=== PATIENT | female | born 1955 | race Caucasian/White ===

== ENCOUNTER 2016-11-09 14:28 | Inpatient (IN) | payer OTHER, SELFPAY ==
[~2016-11-09] VITALS: Ht 149.9 cm; Wt 80.9 kg
[~2016-11-09 14:28] MED LIST: /ADVA50050 INH; /LORA10TA PO; /WARF25TA PO; ADV100INH INH; ALBU17IN INH; B COCAP5 PO; BREO1INH INH; CALC1TAB30 PO; CALCCHW19 PO; CALCD50TA PO; CALTTAB11 PO; COUM2.5T11 PO; CYMB1CAP5 PO; DULO1CAP PO; DULO30CA PO; DULOXETINE HCL PO; ENAL10TA2 PO; FISH100049 PO; FLON0.054; FLON1SPR; FLUT1SPR2; HYDR12.55 PO; IBUP200C; IBUPROPHEN PO; LABE10TAB PO; LORA10TA2 PO; LORATADINE PO; LOVA1CAP17 PO; MELA10CA PO; MELATONIN PO; MOTR200T44 PO; NORV5TAB PO; OMEP20CA3 PO; TYLE325T5 PO; ULTR50TA PO; VITA100037 PO; VITA100066 PO; VITA50003 PO; VITATAB11 PO; ZETI10TA2 PO; ZETIA PO; fish oil
[2016-11-09] MEDS ORDERED: ONDANSETRON 4 MG TAB (S0181) PO ONE (15:45)
[2016-11-09 16:24] LABS: ANION GAP 7 MEQ/L (8-16); BLOOD UREA NITROGEN 12 MG/DL (7-18); CARBON DIOXIDE LEVEL 28 MEQ/L (21-32); CHLORIDE LEVEL 109 MEQ/L (98-107); CREATININE FOR GFR 0.68 MG/DL (0.55-1.02); GLOMERULAR FILTRATION RATE > 60.0 (>45); GLUCOSE, FASTING 96 MG/DL (80-110); POTASSIUM SERUM 3.8 MEQ/L (3.5-5.1); SODIUM LEVEL 144 MEQ/L (136-145)
[2016-11-09] MEDS ORDERED: ASPIRIN 325 MG TAB PO ONE (16:30)
[2016-11-09] MEDS ORDERED: ASPIRIN 81 MG CHEW TABLET PO ONE (16:45)
[2016-11-09 16:46] LABS: BASO % 0.7 % (0.0-1.0); EOS # 0.1 K/mm3 (0.0-0.50); EOS % 1.9 % (0.0-3.0); LARGE UNSTAINED CELL # 0.2 K/mm3 (0.0-0.4); LARGE UNSTAINED CELL % 2.6 % (0.0-4.0); LYMPH # 1.4 K/mm3 (1.5-4.5); LYMPH % 22.5 % (24.0-44.0); MEAN CORPUSCULAR HEMOGLOBIN 29.9 pg (27.0-33.0); MEAN CORPUSCULAR HGB CONC 32.9 g/dl (32.0-36.5); MEAN CORPUSCULAR VOLUME 90.9 fl (80.0-96.0); MONO # 0.3 K/mm3 (0.0-0.8); MONO % 5.5 % (0.0-5.0); NEUTROPHILS # 3.8 K/mm3 (1.8-7.7); NEUTROPHILS % 66.9 % (36.0-66.0); PLATELET COUNT, AUTOMATED 162 k/mm3 (150-450); RED CELL DISTRIBUTION WIDTH 13.9 % (11.5-14.5); WHITE BLOOD COUNT 5.6 K/mm3 (4.0-10.0)
--- NOTE | 2016-11-09 16:50 | REP ---
Clinical: Chest pain and nausea . Comparison: 12/24/2015 . Findings: The mediastinum and cardiac silhouette are stable and within normal limits for portable technique. The lung you are clear without acute consolidation, effusion, or pneumothorax. Skeletal structures are intact. Impression: Normal portable chest x-ray Signed by Ranulfo Tsang MD 11/09/2016 04:41 P
[2016-11-09 17:10] LABS: ALBUMIN 3.3 GM/DL (3.2-5.2); ALBUMIN/GLOBULIN RATIO 0.89 (1.00-1.93); ALKALINE PHOSPHATASE 58 U/L (45-117); ALT/SGPT 31 U/L (12-78); AST/SGOT 21 U/L (15-37); BILIRUBIN,DIRECT 0.2 MG/DL (0.0-0.2); BILIRUBIN,TOTAL 0.8 MG/DL (0.2-1.0)
[2016-11-09] MEDS ORDERED: ACETAMINOPHEN TAB 650MG DOSE (2X325MG) PO PRN (22:45)
[2016-11-10] VITALS (7 sets, daily range): BP systolic 104–133; BP diastolic 58–69
--- NOTE | 2016-11-10 01:10 | REP ---
Clinical: Abdominal pain and distension. Technique: Single supine view of the abdomen and pelvis. Comparison: 11/16/2014. Findings: Bowel gas pattern is nonspecific. No evidence for bowel obstruction or obvious perforation. Mild fecal stasis cannot be excluded along with associated constipation. No organomegaly. Skeletal structures demonstrate age-related degenerative changes. No abnormal calcifications. Impression: Nonspecific bowel gas pattern. Cannot exclude mild fecal stasis and constipation. Signed by Ranulfo Tsang MD 11/10/2016 01:02 A
[2016-11-10] MEDS ORDERED: BISACODYL 5 MG TAB PO PRN (02:45)
[2016-11-10 05:23] LABS: MEAN CORPUSCULAR HEMOGLOBIN 30.2 pg (27.0-33.0); MEAN CORPUSCULAR HGB CONC 31.2 g/dl (32.0-36.5); RED CELL DISTRIBUTION WIDTH 13.7 % (11.5-14.5); WHITE BLOOD COUNT 4.6 K/mm3 (4.0-10.0)
--- NOTE | 2016-11-10 05:31 | HPE ---
DATE OF ADMISSION: 11/09/2016 REASON FOR ADMISSION: Abdominal pain. PRIMARY CARE PROVIDER: None. HISTORY OF PRESENT ILLNESS The patient is a 61-year-old female with past medical history significant for depression, hyperlipidemia, gastroesophageal reflux disease (GERD), hiatal hernia, history of asthma, who presented to the emergency room stating that she has been feeling nauseated and not feeling well for the last couple of days. She has reported subjective fevers outpatient. The patient stated that she has had a rough couple of days where she had recently become homeless. She had from her and has been living with her brother since the beginning of September. Over the weekend her brother kicked her out and she has been sleeping in her car for the last two days. She stated she started having abdominal pain generalized in nature associated with nausea, no vomiting or diarrhea. The patient stated that she had no other complaints other than subjective fevers. No chest pain or shortness of breath. No cough. No diarrhea. No constipation. No other focal deficits or complaints. In the emergency room, the patient underwent chest x-ray, electrocardiogram (EKG) and lab work. Lab work was within normal limits, negative troponins. EKG had some ST elevation in V1 and V2. Dr. Patricia Mccurdy contacted icu nurse in [place], Dr. German, and she sent him pictures of the EKG as well. He felt that the findings are likely reflective of an old event and not acute event, since the patient is currently asymptomatic with negative troponins. She then spoke with Dr. Li from cardiology who agreed with this assessment. They recommended the patient be admitted and monitored overnight on telemetry. Upon my exam the patient denied any chest pain. Denied any arm pain or neck pain. No back pain. No shortness of breath. No diaphoresis or dizziness. REVIEW OF SYSTEMS: 12-point review of systems was obtained all which is negative except for those mentioned above. PAST MEDICAL HISTORY: Significant for GERD, hiatal hernia, hypertension, asthma, depression. PAST SURGICAL HISTORY: Significant for cholecystectomy, section, bilateral knee, and dilation and curettage(D and C). ALLERGIES: OPIATES, PREDNISONE and NAPROXEN. MEDICATIONS: None. SOCIAL HISTORY: The patient at use to smoke, quite 20 years ago. She admits to binge drinking, but states she has not had any alcohol in months. She currently lives in her car. FAMILY HISTORY: Noncontributory. PHYSICAL FINDINGS: VITALS: On admission, temperature 98.4 pulse 88, respiratory rate 14, blood pressure 130s over 74, pulse oximetry 94% on room air. HEENT: Pupils equal, round, reactive to light and accommodation. NECK: Supple. No jugular venous distention (JVD). LUNGS: Clear to auscultation (CTA) bilaterally. ABDOMEN: Soft, tender to palpation, generalized tenderness. Positive bowel sounds, nondistended. CARDIAC: Regular rate and rhythm. Patient has a +3 over 6 systolic murmur. EXTREMITIES: No clubbing, cyanosis or edema. NEUROLOGIC: Cranial nerves II-XII grossly intact. No obvious focal deficits. LABORATORY FINDINGS: Sodium 144, potassium 3.8, chloride 109, BUN 12, creatinine 0.68, fasting glucose 96, alk phos 58, AST 21, ALT 31, troponin negative times two sets. CK relative index 2.11 and 2.34, lipase 73. Total creatine kinase was 0.3, repeat was negative IMAGING STUDIES: Chest x-ray was normal. KUB showed nonspecific gas pattern; cannot exclude fecal stasis and constipation. ASSESSMENT AND PLAN: 1. Abdominal pain, nausea, likely secondary to constipation. The patient stated she has not had a bowel movement today; she did yesterday. We will start the patient on bowel regimen. We will continue to monitor. We will start the patient on a diet. 2. Electrocardiogram (EKG) abnormality. We will continue to trend troponins. The patient denies any cardiac symptoms at this time. States she used to see Dr. Ivan in the past but has not been following up with any providers. She states that she did have a stress test about two years ago but no further workup was done. The patient has a 3/6 systolic murmur. We will obtain an echocardiogram. 3. History of depression. 4. History of gastroesophageal reflux disease. We will start the patient on Protonix orally. 5. History of hypertension. However, the patient's blood pressure appears to be stable at this time. We will continue to monitor and had medications if needed. 6. Deep venous thrombosis (DVT) prophylaxis. Lovenox subcutaneously daily. The patient will be seen by Dr. Alcantara in the morning. [facility]
[2016-11-10 05:32] LABS: ALBUMIN 2.9 GM/DL (3.2-5.2); ALBUMIN/GLOBULIN RATIO 0.94 (1.00-1.93); ALKALINE PHOSPHATASE 51 U/L (45-117); ALT/SGPT 25 U/L (12-78); ANION GAP 5 MEQ/L (8-16); AST/SGOT 17 U/L (15-37); BILIRUBIN,TOTAL 0.8 MG/DL (0.2-1.0); BLOOD UREA NITROGEN 10 MG/DL (7-18); CALCIUM LEVEL 7.9 MG/DL (8.8-10.2); CARBON DIOXIDE LEVEL 29 MEQ/L (21-32); CHLORIDE LEVEL 109 MEQ/L (98-107); CREATININE FOR GFR 0.71 MG/DL (0.55-1.02); GLOMERULAR FILTRATION RATE > 60.0 (>45); GLUCOSE, FASTING 93 MG/DL (80-110); MAGNESIUM LEVEL 1.9 MG/DL (1.8-2.4); POTASSIUM SERUM 3.7 MEQ/L (3.5-5.1); SODIUM LEVEL 143 MEQ/L (136-145)
--- NOTE | 2016-11-10 07:27 | ECGEPIP ---
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
--- NOTE | 2016-11-10 07:33 | ECGEPIP ---
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
[2016-11-10] MEDS ORDERED: MOM 30ML SUSPENSION UDC PO SCH ×2 (09:00→12:00)
[2016-11-10] MEDS: ENOXAPARIN 40 MG/0.4 ML SYRINGE (J1650) SC SCH (09:31)
[2016-11-10] MEDS: ATORVASTATIN 20 MG TAB PO SCH (09:31)
[2016-11-10] MEDS: ASPIRIN 325 MG TAB PO SCH (09:31)
[2016-11-10] MEDS: PANTOPRAZOLE 40MG TAB (PROTONIX) PO SCH (09:32)
[2016-11-10] MEDS: DOCUSATE SODIUM 100 MG CAP PO SCH ×2 (09:32→20:26)
[2016-11-10] MEDS ORDERED: SLF 3 ML SYR IV PRN (10:45)
--- NOTE | 2016-11-10 12:17 | IPNPDOC ---
Text Note Date of Service The patient was seen on 11/10/16. NOTE Subjective: Pt feels well. Abd pain has resolved. States she is constipated. Tolerated her breakfast without N/V. No CP/palpitations. Objective: Vitals: (see below) General: No acute distress, laying comfortably in bed. HEENT: Moist mucous membranes. Neck: No JVD or lymphadenopathy Cardiac: 3/6 systolic murmur 2nd RICS, RRR Pulm: Diminished breath sounds at the bases b/l. No wheezing, rhonchi Abd: NT/ND + BS Ext: No edema or cyanosis Labs (see below) Images: Abd x ray 11/09/16 Nonspecific bowel gas pattern. Cannot exclude mild fecal stasis and constipation. CXR 11/09/16 Impression: Normal portable chest x-ray Assessment/Plan 1. ST changes with murmur - Echocardiogram pending. CE negative. No CP/ palpitations. Dr. Vidal had spoken to ED physician, noted the spring former [facility] as well as Dr. Li believed that these ST changes are chronic, and do not reflect true [place]. Continue to monitor in telemetry. On aspirin and statin until echocardiogram comes back. 2. Constipation- likely the cause of patient's abdominal discomfort. We will optimize her bowel regimen. 3. History of Depression 4. History of hypertension- blood pressure stable off the meds. 5. GERD- on PPI DVT prophy: Lovenox SQ VS,Fishbone, I+O VS, Fishbone, I+O Laboratory Tests 11/09/16 15:43 Red Blood Count 4.35, Mean Corpuscular Volume 90.9, Mean Corpuscular Hemoglobin 29.9, Mean Corpuscular Hemoglobin Concent 32.9, Red Cell Distribution Width 13.9 , Neutrophils (%) (Auto) 66.9 H, Lymphocytes (%) (Auto) 22.5 L, Monocytes (%) ( Auto) 5.5 H, Eosinophils (%) (Auto) 1.9, Basophils (%) (Auto) 0.7, Neutrophils # (Auto) 3.8, Lymphocytes # (Auto) 1.4 L, Monocytes # (Auto) 0.3, Eosinophils # (Auto) 0.1, Basophils # (Auto) 0.0, Calcium Level 9.0 11/10/16 04:54 Red Blood Count 4.00, Mean Corpuscular Volume 97.0 #H, Mean Corpuscular Hemoglobin 30.2, Mean Corpuscular Hemoglobin Concent 31.2 L, Red Cell Distribution Width 13.7, Calcium Level 7.9 L, Aspartate Amino Transf (AST/SGOT) 17, Alanine Aminotransferase (ALT/SGPT) 25, Total Creatine Kinase 156, Alkaline Phosphatase 51, Total Bilirubin 0.8, Total Protein 6.0 L, Albumin 2.9 L Vital Signs Date Time Temp Pulse Resp B/P (MAP) Pulse Ox O2 Delivery O2 Flow Rate FiO2 11/10/16 07:30 98.3 73 16 107/65 (79) 94 Room Air I&O- Last 24 Hours up to 6 AM 11/10/16 06:00 Intake Total 920 ml Balance 920 ml SHOBHA PHILLIPS MD November 10, 2016 12:17
--- NOTE | 2016-11-10 13:40 | ECHO ---
DATE OF STUDY: 11/10/2016 REFERRING PHYSICIAN: Dr. Quirino Alcantara INDICATION: Heart murmur, abnormal electrocardiogram (ECG) (ST elevation). HEIGHT: 150 cm WEIGHT: 77.7 kg 2D MEASUREMENTS: Aortic root: 2.6 cm LVOT: 2.0 cm Ventricular septum: 1.14 cm Posterior wall: 1.12 cm Left ventricle diastole: 3.9 cm Left atrium: 3.5 cm DOPPLER MEASUREMENTS: Mild aortic regurgitation. Severe aortic stenosis. Peak aortic valve velocity: 486 cm/s Aortic valve VTI: 113 cm Peak aortic valve gradient: 94 mmHg Mean aortic valve gradient: 60 mmHg Aortic valve area (continuity equation VTI): 0.47 cm squared LVOT velocity: 80.0 cm/s LVOT VTI: 16.9 cm Mild mitral regurgitation. Mitral E velocity: 70.1 cm/s Mitral A velocity: 97.2 cm/s Mitral deceleration time: 211 ms Mild tricuspid regurgitation. Estimated right ventricle systolic pressure: 29 mmHg Pulmonary artery systolic pressure: 14 mmHg (by pulmonary acceleration time method) MITRAL ANNULAR TISSUE DOPPLER: E prime septal: 4.1 cm/s E prime lateral: 5.9 cm/s DESCRIPTION: Rhythm was sinus. Image quality was good. No pericardial effusion. This is a 2D, M-mode, color flow Doppler, and pulse wave Doppler examination and included mitral annular tissue Doppler. No pericardial effusion. CONCLUSIONS: 1. Degenerative, calcific aortic valve disease with severe focal thickening and focal calcific deposits of a three-cuspid aortic valve. Moderate reduction in aortic cusp mobility. Presence of severe/critical aortic valve stenosis with peak aortic velocity of 486 cm/s, aortic valve area 0.47 cm squared, peak gradient of 94 mmHg and mean aortic valve gradient of 60 mmHg. Mild aortic regurgitation. 2. Normal left ventricle internal dimensions and wall thickness. Normal left ventricle (LV) wall motion and wall thickening. Normal LV systolic function. Left ventricular ejection fraction (LVEF) 65% by visual estimate. Grade 1 LV diastolic dysfunction (impaired relaxation filling pattern). 3. Mild mitral annular calcification. Mild mitral regurgitation. Suggest aortic valve replacement if the patient has symptoms attributable to severe aortic valve stenosis, such as presyncope or syncope, exertional dyspnea, or anginal symptoms. If the patient is not symptomatic with critical aortic valve stenosis, then suggest close clinical followup and an echocardiogram Doppler in 1 year.
[2016-11-10] MEDS: MOM 30ML SUSPENSION UDC PO SCH ×3 (14:19→20:26)
[2016-11-10] MEDS: SLF 3 ML SYR IV SCH ×2 (14:20→22:00)
[2016-11-10] MEDS: MIRALAX *UNIT DOSE* 17GM PACKET PO SCH (20:26)
[2016-11-11] MEDS: MOM 30ML SUSPENSION UDC PO SCH ×4 (00:27→13:00)
[2016-11-11 04:30] VITALS: BP 150/80
[2016-11-11 05:41] LABS: MEAN CORPUSCULAR HEMOGLOBIN 30.2 pg (27.0-33.0); MEAN CORPUSCULAR HGB CONC 32.8 g/dl (32.0-36.5); RED CELL DISTRIBUTION WIDTH 13.8 % (11.5-14.5); WHITE BLOOD COUNT 4.7 K/mm3 (4.0-10.0)
[2016-11-11 05:45] LABS: MEAN CORPUSCULAR VOLUME 91.9 fl (80.0-96.0)
[2016-11-11 05:57] LABS: ALBUMIN 3.6 GM/DL (3.2-5.2); ALBUMIN/GLOBULIN RATIO 0.88 (1.00-1.93); ALKALINE PHOSPHATASE 63 U/L (45-117); ALT/SGPT 32 U/L (12-78); ANION GAP 6 MEQ/L (8-16); AST/SGOT 19 U/L (15-37); BILIRUBIN,TOTAL 0.9 MG/DL (0.2-1.0); BLOOD UREA NITROGEN 9 MG/DL (7-18); CALCIUM LEVEL 8.8 MG/DL (8.8-10.2); CARBON DIOXIDE LEVEL 29 MEQ/L (21-32); CHLORIDE LEVEL 106 MEQ/L (98-107); CREATININE FOR GFR 0.75 MG/DL (0.55-1.02); GLOMERULAR FILTRATION RATE > 60.0 (>45); GLUCOSE, FASTING 113 MG/DL (80-110); MAGNESIUM LEVEL 2.4 MG/DL (1.8-2.4); SODIUM LEVEL 141 MEQ/L (136-145); TOTAL PROTEIN 7.7 GM/DL (6.4-8.2)
[2016-11-11] MEDS: SLF 3 ML SYR IV SCH (05:59)
[2016-11-11 08:00] VITALS: BP 132/73
[2016-11-11] MEDS: DOCUSATE SODIUM 100 MG CAP PO SCH (09:00)
[2016-11-11] MEDS: MIRALAX *UNIT DOSE* 17GM PACKET PO SCH (09:00)
[2016-11-11] MEDS: ATORVASTATIN 20 MG TAB PO SCH (09:04)
[2016-11-11] MEDS: ASPIRIN 325 MG TAB PO SCH (09:04)
[2016-11-11] MEDS: ENOXAPARIN 40 MG/0.4 ML SYRINGE (J1650) SC SCH (09:04)
[2016-11-11] MEDS: PANTOPRAZOLE 40MG TAB (PROTONIX) PO SCH (09:04)
[2016-11-11] MEDS ORDERED: ATOR1TAB21 PO (11:37)
[2016-11-11] MEDS ORDERED: ECOT81TA5 PO (11:37)
[2016-11-11 11:47] VITALS: BP 101/56
[2016-11-11 11:59] VITALS: BP 129/71
--- NOTE | 2016-11-11 16:16 | DS.PDOC ---
Discharge Summary General Date of Admission November 09, 2016 at 22:41 Date of Discharge 11/11/16 Attending Physician: SHOBHA PHILLIPS MD Discharge Summary PROCEDURES PERFORMED DURING STAY: None. ADMITTING/DISCHARGE DIAGNOSES: 1. Abdominal discomfort secondary to constipation 2. Chronic ST changes 3. LVH 4. Left bundle-branch block 5. Severe/critical aortic stenosis 6. Hypertension, diet controlled 7. GERD 8. History of depression COMPLICATIONS/CHIEF COMPLAINT: Abdominal Pain. HISTORY OF PRESENT ILLNESS/HOSPITAL COURSE: . This is a 61-year-old female with a past history of hypertension, GERD who presents complaining of abdominal discomfort. Patient had been having abdominal bloating, discomfort, with x-ray notable for abnormal gas pattern suspicious for constipation. Patient states that she has been cost. Over the past few days. Of note the patient did have an EKG with ST elevations and the septal as well as inferior leads. Per medical records and Dr. Vidal, these EKGs were reviewed by the color maker in [place] as well as Dr. Li, with consensus that these represent chronic changes, in no acute ischemia, and therefore no need to be transferred to [place]. The patient states she exercises on a treadmill for 2-3 miles at a time. Denies any chest pain/restless/palpitations. No syncopal or presyncopal episodes. Patient was treated for constipation and her abdominal discomfort has completely resolved. I have discussed the results of the patient's severe/critical with the patient, and she states that she would like to have follow-up with Dr. Ivan and would not like any interventions for it at this time as she is asymptomatic. I've called Dr. Ivan and updated him on the patient's echocardiogram results, and he will be seeing the patient's next Wednesday11/16/16 at 2 PM. Patient is now hemodynamically stable and ready to be discharged home. DISCHARGE MEDICATIONS: Please see below. ALLERGIES: Please see below. PHYSICAL EXAMINATION ON DISCHARGE: Vitals: (see below) General: No acute distress, laying comfortably in bed. HEENT: Moist mucous membranes. Neck: No JVD or lymphadenopathy Cardiac: 3/6 systolic murmur 2nd RICS, RRR Pulm: Diminished breath sounds at the bases b/l. No wheezing, rhonchi Abd: NT/ND + BS Ext: No edema or cyanosis LABORATORY DATA: Please see below. IMAGING: Abd x ray 11/09/16 Nonspecific bowel gas pattern. Cannot exclude mild fecal stasis and constipation. CXR 11/09/16 Impression: Normal portable chest x-ray Echocardiogram 11/10/16 CONCLUSIONS: 1. Degenerative, calcific aortic valve disease with severe focal thickening and focal calcific deposits of a three-cuspid aortic valve. Moderate reduction in aortic cusp mobility. Presence of severe/critical aortic valve stenosis with peak aortic velocity of 486 cm/s, aortic valve area 0.47 cm squared, peak gradient of 94 mmHg and mean aortic valve gradient of 60 mmHg. Mild aortic regurgitation. 2. Normal left ventricle internal dimensions and wall thickness. Normal left ventricle (LV) wall motion and wall thickening. Normal LV systolic function. Left ventricular ejection fraction (LVEF) 65% by visual estimate. Grade 1 LV diastolic dysfunction (impaired relaxation filling pattern). 3. Mild mitral annular calcification. Mild mitral regurgitation. Suggest aortic valve replacement if the patient has symptoms attributable to severe aortic valve stenosis, such as presyncope or syncope, exertional dyspnea, or anginal symptoms. If the patient is not symptomatic with critical aortic valve stenosis, then suggest close clinical followup and an echocardiogram Doppler in 1 year. PROGNOSIS: Fair ACTIVITY: As tolerated. DIET: Low-sodium DISCHARGE PLAN/DISPOSITION: 01 Home, Self-Care. DISCHARGE INSTRUCTIONS: 1. Follow-up with PCP in 1-2 weeks. Follow up with Dr. Ivan on Wednesday11/16/16 at 2 PM. DISCHARGE CONDITION: Stable. TIME SPENT ON DISCHARGE: Greater than 30 minutes. Vital Signs/I&Os Vital Signs Date Time Temp Pulse Resp B/P (MAP) Pulse Ox O2 Delivery O2 Flow Rate FiO2 11/11/16 11:59 129/71 (90) 11/11/16 11:47 98.0 68 18 95 Room Air I&O- Last 24 Hours up to 6 AM 11/11/16 06:00 Intake Total 360 ml Balance 360 ml Laboratory Data Labs 24H Laboratory Tests 2 11/11/16 04:55: Anion Gap 6L, Glomerular Filtration Rate > 60.0, Blood Urea Nitrogen 9, Creatinine 0.75, Sodium Level 141, Potassium Level 4.0, Chloride Level 106, Carbon Dioxide Level 29, Calcium Level 8.8, Aspartate Amino Transf (AST/SGOT) 19 , Alanine Aminotransferase (ALT/SGPT) 32, Alkaline Phosphatase 63, Total Bilirubin 0.9, Total Protein 7.7#, Albumin 3.6#, Magnesium Level 2.4, Albumin/ Globulin Ratio 0.88L CBC/BMP Laboratory Tests 11/11/16 04:55 Red Blood Count 4.52, Mean Corpuscular Volume 91.9 #, Mean Corpuscular Hemoglobin 30.2, Mean Corpuscular Hemoglobin Concent 32.8, Red Cell Distribution Width 13.8, Calcium Level 8.8, Aspartate Amino Transf (AST/SGOT) 19 , Alanine Aminotransferase (ALT/SGPT) 32, Alkaline Phosphatase 63, Total Bilirubin 0.9, Total Protein 7.7 #, Albumin 3.6 # Microbiology Microbiology 11/09/16 Influenza Virus Type A Antigen - Final, Complete 11/09/16 Influenza Virus Type B Antigen - Final, Complete Discharge Medications Scheduled Aspirin (Ecotrin Low Strength) 81 Mg Tab, 81 MG PO DAILY Atorvastatin Calcium (Atorvastatin Calcium) 20 Mg Tab, 20 MG PO DAILY Allergies Coded Allergies: Latex (Verified Allergy, Intermediate, RASH, ITCHING, 11/14/14) Oxycodone (Verified Allergy, Intermediate, PERCOCET-SWELLING, 09/12/14) Prednisone (Verified Allergy, Unknown, 12/11/14) Naproxen (Verified Adverse Reaction, Mild, UPSET STOMACH, 12/25/15) SHOBHA PHILLIPS MD November 11, 2016 16:16
== END 2016-11-11 14:45 | disposition home or self-care (01) | DRG 254 ==
LOC: M ED 15:44 → M ED INP 22:41 → M PCU 11-10 00:03
PROVIDERS: ADMIT Internal Medicine; ATTEND Internal Medicine
DX: K59.00 Constipation, unspecified (principal); F32.9 Major depressive disorder, single episode, unspecified; E78.5 Hyperlipidemia, unspecified; K21.9 Gastro-esophageal reflux disease without esophagitis; K44.9 Diaphragmatic hernia without obstruction or gangrene; J45.909 Unspecified asthma, uncomplicated; I10 Essential (primary) hypertension; Z59.0 Homelessness; I35.0 Nonrheumatic aortic (valve) stenosis; I44.7 Left bundle-branch block, unspecified; Z88.6 Allergy status to analgesic agent; Z91.040 Latex allergy status; Z88.5 Allergy status to narcotic agent; Z88.8 Allergy status to other drugs, medicaments and biological substances; Z79.899 Other long term (current) drug therapy

== ENCOUNTER → 2016-12-31 | Outpatient (CLI) | payer OTHER ==
[~2016-12-31] MED LIST changes: +ATOR1TAB21 PO; -COUM2.5T11 PO; +COUM2.5T17 PO; +ECOT81TA5 PO; -IBUP200C; +IBUP200C10; +ULTR50TA8 PO; -VITA100037 PO; +VITA100067 PO; +VITA1CAP40 PO; -VITA50003 PO; -ZETI10TA2 PO; +ZETI10TA30 PO
--- NOTE | 2016-12-31 13:22 | REPMRS ---
Patient History The patient states she has not had a clinical breast exam in over a year. Patient is postmenopausal and had first child at age 37. Family history of colorectal cancer in father at age 50 or over, breast cancer in maternal aunt under age 50, and breast cancer in maternal cousin at age 50 or over. Digital Woman Screen Mammo: December 31, 2016 - Exam #: [id number] Bilateral CC and MLO view(s) were taken. Technologist: Anne Das, Technologist No prior studies available for comparison. FINDINGS: There are scattered fibroglandular densities. There is no evidence of dominant mass, architectural distortion, or clustered microcalcification typical of malignancy. ASSESSMENT: BI-RADS/ACR category 1 mammogram. Negative. Recommendation Routine screening mammogram of both breasts in 1 year (for women over age 40). This mammogram was interpreted with the aid of an FDA-approved computer-aided dectection system. Electronically Signed By: Frederic Fu MD 12/31/16 [id number]
== END ==
LOC: M WHC 12:13
PROVIDERS: ATTEND Physician Assistant Medical
DX: Z12.31 Encounter for screening mammogram for malignant neoplasm of breast (principal); Z78.0 Asymptomatic menopausal state; Z80.3 Family history of malignant neoplasm of breast; Z80.0 Family history of malignant neoplasm of digestive organs

== ENCOUNTER → 2017-01-08 | Outpatient (REF) | payer OTHER ==
[2017-01-08 12:02] LABS: VITAMIN B12 LEVEL 866 PG/ML (247-911)
[2017-01-08 12:16] LABS: ALBUMIN 3.5 GM/DL (3.2-5.2); ALBUMIN/GLOBULIN RATIO 1.03 (1.00-1.93); ALKALINE PHOSPHATASE 70 U/L (45-117); ALT/SGPT 17 U/L (12-78); ANION GAP 10 MEQ/L (8-16); AST/SGOT 15 U/L (15-37); BILIRUBIN,TOTAL 0.9 MG/DL (0.2-1.0); BLOOD UREA NITROGEN 13 MG/DL (7-18); CALCIUM LEVEL 8.7 MG/DL (8.8-10.2); CARBON DIOXIDE LEVEL 29 MEQ/L (21-32); CHLORIDE LEVEL 103 MEQ/L (98-107); CHOLESTEROL LEVEL 218 MG/DL (<200); CREATININE FOR GFR 0.72 MG/DL (0.55-1.02); FREE T4 1.01 NG/DL (0.76-1.46); GLOMERULAR FILTRATION RATE > 60.0 (>45); GLUCOSE, FASTING 85 MG/DL (80-110); POTASSIUM SERUM 4.1 MEQ/L (3.5-5.1); SODIUM LEVEL 142 MEQ/L (136-145); TOTAL PROTEIN 6.9 GM/DL (6.4-8.2); TRIGLYCERIDES LEVEL 96 MG/DL (<150)
[2017-01-08 12:37] LABS: BASO % 1.1 % (0.0-1.0); EOS # 0.1 K/mm3 (0.0-0.50); EOS % 3.3 % (0.0-3.0); LARGE UNSTAINED CELL # 0.1 K/mm3 (0.0-0.4); LARGE UNSTAINED CELL % 2.6 % (0.0-4.0); LYMPH # 1.2 K/mm3 (1.5-4.5); LYMPH % 31.2 % (24.0-44.0); MEAN CORPUSCULAR HEMOGLOBIN 30.5 pg (27.0-33.0); MEAN CORPUSCULAR HGB CONC 33.1 g/dl (32.0-36.5); MEAN CORPUSCULAR VOLUME 92.2 fl (80.0-96.0); MONO # 0.3 K/mm3 (0.0-0.8); MONO % 7.1 % (0.0-5.0); NEUTROPHILS # 2.1 K/mm3 (1.8-7.7); NEUTROPHILS % 54.7 % (36.0-66.0); PLATELET COUNT, AUTOMATED 163 k/mm3 (150-450); RED CELL DISTRIBUTION WIDTH 13.2 % (11.5-14.5); WHITE BLOOD COUNT 3.8 K/mm3 (4.0-10.0)
== END ==
LOC: M SFHCPLAZ 08:50
PROVIDERS: ATTEND Physician Assistant Medical
DX: I35.1 Nonrheumatic aortic (valve) insufficiency (principal); E66.9 Obesity, unspecified; R73.01 Impaired fasting glucose; E55.9 Vitamin D deficiency, unspecified; E53.8 Deficiency of other specified B group vitamins

== ENCOUNTER → 2017-09-03 | Outpatient (REF) | LOC: M LAB 15:30 | DX: Z00.00 Encounter for general adult medical examination without abnormal findings (principal) ==

== ENCOUNTER 2018-02-06 18:49 | Observation (INO) | payer OTHER ==
[2018-02-06] MEDS: NS 500 ML IV (20:17)
[2018-02-06 20:26] LABS: BASO # 0.1 10^3/uL (0.0-0.2); BASO % 0.7 % (0.0-1.0); EOS # 0.1 10^3/uL (0.0-0.50); EOS % 1.6 % (0.0-3.0); HEMATOCRIT 31.8 % (36.0-47.0); HEMOGLOBIN 9.9 g/dl (12.0-15.5); IMMATURE GRANULOCYTE % 0.3 % (0-3.0); LYMPH # 0.8 10^3/uL (1.5-4.5); LYMPH % 11.6 % (24.0-44.0); MEAN CORPUSCULAR HEMOGLOBIN 26.5 pg (27.0-33.0); MEAN CORPUSCULAR HGB CONC 31.1 g/dl (32.0-36.5); MONO # 0.4 10^3/uL (0.0-0.8); NEUTROPHILS # 5.4 10^3/uL (1.8-7.7); NEUTROPHILS % 79.8 % (36.0-66.0); PLATELET COUNT, AUTOMATED 146 10^3/uL (150-450); RED BLOOD COUNT 3.74 10^6/uL (4.00-5.40); RED CELL DISTRIBUTION WIDTH 14.4 % (11.5-14.5); WHITE BLOOD COUNT 6.8 10^3/uL (4.0-10.0)
[2018-02-06 20:36] LABS: INR 1.01; PARTIAL THROMBOPLASTIN TIME 25.2 SECONDS (25.4-37.6); PROTHROMBIN TIME 13.4 SECONDS (12.1-14.4)
[2018-02-06 20:39] LABS: D-DIMER QUANT 385.8 ng/ml (<500)
[2018-02-06 20:53] LABS: ALBUMIN 3.2 GM/DL (3.2-5.2); ALBUMIN/GLOBULIN RATIO 0.94 (1.00-1.93); ALKALINE PHOSPHATASE 53 U/L (45-117); ALT/SGPT 19 U/L (12-78); ANION GAP 8 MEQ/L (8-16); AST/SGOT 26 U/L (7-37); BILIRUBIN,DIRECT 0.1 MG/DL (0.0-0.2); BILIRUBIN,TOTAL 0.4 MG/DL (0.2-1.0); BLOOD UREA NITROGEN 12 MG/DL (7-18); C REACTIVE PROTEIN QUANTITATIV 0.39 MG/DL (0.00-0.30); CARBON DIOXIDE LEVEL 28 MEQ/L (21-32); CHLORIDE LEVEL 106 MEQ/L (98-107); CPK CREATINE PHOSPHOKINASE 176 U/L (26-192); CREATININE FOR GFR 0.76 MG/DL (0.55-1.30); GLOMERULAR FILTRATION RATE > 60.0 (>45); GLUCOSE, FASTING 104 MG/DL (70-100); LIPASE 90 U/L (73-393); POTASSIUM SERUM 3.8 MEQ/L (3.5-5.1); SODIUM LEVEL 142 MEQ/L (136-145); TOTAL PROTEIN 6.6 GM/DL (6.4-8.2); TROPONIN I 0.06 NG/ML (< 0.10)
[2018-02-06 20:59] LABS: CK-MB VALUE MASS 2.3 NG/ML (<3.6); FREE T4 1.01 NG/DL (0.76-1.46)
[2018-02-06 23:05] LABS: CK-MB VALUE MASS 3.3 NG/ML (<3.6); CPK CREATINE PHOSPHOKINASE 208 U/L (26-192); MB/CK RELATIVE INDEX 1.58 (< OR =4); TROPONIN I 0.08 NG/ML (< 0.10)
[2018-02-06] MEDS ORDERED: BISACODYL 5 MG TAB PO (23:45)
[2018-02-06] MEDS ORDERED: ONDANSETRON 4MG/2ML VIAL (J2405) IV (23:45)
[2018-02-06] MEDS ORDERED: METOCLOPRAMIDE INJ 10MG/2ML VIAL (J2765) IV (23:45)
[2018-02-06] MEDS ORDERED: BISACODYL 10 MG SUPP PR (23:45)
[2018-02-06] MEDS ORDERED: ACETAMINOPHEN TAB 650MG DOSE (2X325MG) PO (23:45)
[2018-02-07 04:31] LABS: HEMATOCRIT 32.1 % (36.0-47.0); HEMOGLOBIN 9.9 g/dl (12.0-15.5); MEAN CORPUSCULAR HEMOGLOBIN 26.8 pg (27.0-33.0); MEAN CORPUSCULAR HGB CONC 30.8 g/dl (32.0-36.5); PLATELET COUNT, AUTOMATED 148 10^3/uL (150-450); RED BLOOD COUNT 3.69 10^6/uL (4.00-5.40); RED CELL DISTRIBUTION WIDTH 14.4 % (11.5-14.5); WHITE BLOOD COUNT 5.6 10^3/uL (4.0-10.0)
[2018-02-07 04:56] LABS: ANION GAP 5 MEQ/L (8-16); BLOOD UREA NITROGEN 12 MG/DL (7-18); CARBON DIOXIDE LEVEL 30 MEQ/L (21-32); CHLORIDE LEVEL 110 MEQ/L (98-107); CK-MB VALUE MASS 2.7 NG/ML (<3.6); CPK CREATINE PHOSPHOKINASE 176 U/L (26-192); GLOMERULAR FILTRATION RATE > 60.0 (>45); GLUCOSE, FASTING 88 MG/DL (70-100); MB/CK RELATIVE INDEX 1.53 (< OR =4); POTASSIUM SERUM 3.7 MEQ/L (3.5-5.1); SODIUM LEVEL 145 MEQ/L (136-145); TROPONIN I 0.05 NG/ML (< 0.10)
[2018-02-07] MEDS: HEPARIN SOD (PORCINE) 5000 UNITS/ML VIAL SC (06:29)
[2018-02-07] MEDS: ASPIRIN 81 MG ENTERIC TAB PO (08:57)
[2018-02-07] MEDS: ASCORBIC ACID 500 MG TAB PO (08:57)
[2018-02-07 10:25] LABS: CK-MB VALUE MASS 2.3 NG/ML (<3.6); CPK CREATINE PHOSPHOKINASE 158 U/L (26-192); MB/CK RELATIVE INDEX 1.45 (< OR =4); TROPONIN I 0.03 NG/ML (< 0.10)
== END 2018-02-07 10:15 | disposition other institution (70) ==
LOC: M ICU 02-07 02:57 → M ED 18:49 → M ED INP 23:33
DX: I35.0 Nonrheumatic aortic (valve) stenosis (principal); R07.9 Chest pain, unspecified; E78.4 Other hyperlipidemia; K21.9 Gastro-esophageal reflux disease without esophagitis; I10 Essential (primary) hypertension; J45.909 Unspecified asthma, uncomplicated; Z79.82 Long term (current) use of aspirin; Z91.040 Latex allergy status; K44.9 Diaphragmatic hernia without obstruction or gangrene; Z79.899 Other long term (current) drug therapy; Z88.7 Allergy status to serum and vaccine
CPT/HCPCS: 71045

== ENCOUNTER 2018-02-13 16:25 | Emergency (ER) | payer MEDICAID, SELFPAY, OTHER ==
[2018-02-13] MEDS ORDERED: WARFARIN SOD 5 MG TAB PO (19:00)
[2018-02-13] MEDS: WARFARIN SOD 3 MG TAB PO (19:28)
[2018-02-13] MEDS: METOPROLOL TART 25 MG TABLET PO (19:29)
== END 2018-02-13 19:34 | disposition home or self-care (01) ==
LOC: M ED 16:25
DX: Z76.0 Encounter for issue of repeat prescription (principal); Z87.891 Personal history of nicotine dependence
CPT/HCPCS: 99283

== ENCOUNTER 2018-02-21 22:15 | Emergency (ER) | payer MEDICAID, SELFPAY, OTHER | END 2018-02-22 02:54 | disposition home or self-care (01) | LOC: M ED 22:15 | DX: I97.618 Postprocedural hemorrhage of a circulatory system organ or structure following other circulatory system procedure (principal); I25.10 Atherosclerotic heart disease of native coronary artery without angina pectoris | CPT/HCPCS: 99284 ==

== ENCOUNTER 2018-03-08 17:38 | Emergency (ER) | payer MEDICAID, OTHER | END 2018-03-08 21:10 | disposition home or self-care (01) | LOC: M ED 17:38 | DX: L76.22 Postprocedural hemorrhage of skin and subcutaneous tissue following other procedure (principal); Z98.61 Coronary angioplasty status; I35.9 Nonrheumatic aortic valve disorder, unspecified; Z87.891 Personal history of nicotine dependence; Z79.82 Long term (current) use of aspirin; Z79.899 Other long term (current) drug therapy; Z88.5 Allergy status to narcotic agent; Z88.6 Allergy status to analgesic agent; Z88.8 Allergy status to other drugs, medicaments and biological substances | CPT/HCPCS: 93926 ==

== ENCOUNTER → 2018-04-14 | Outpatient (REF) | payer OTHER, MEDICAID ==
[2018-04-14 19:13] LABS: BASO # 0.1 10^3/uL (0.0-0.2); BASO % 1.1 % (0.0-1.0); EOS # 0.1 10^3/uL (0.0-0.50); EOS % 2.7 % (0.0-3.0); HEMATOCRIT 35.8 % (36.0-47.0); HEMOGLOBIN 10.6 g/dl (12.0-15.5); IMMATURE GRANULOCYTE % 0.2 % (0-3.0); LYMPH # 1.6 10^3/uL (1.5-4.5); LYMPH % 36.8 % (24.0-44.0); MEAN CORPUSCULAR HEMOGLOBIN 24.7 pg (27.0-33.0); MEAN CORPUSCULAR HGB CONC 29.6 g/dl (32.0-36.5); MEAN CORPUSCULAR VOLUME 83.3 fl (80.0-96.0); MONO # 0.4 10^3/uL (0.0-0.8); MONO % 8.6 % (0.0-5.0); NEUTROPHILS # 2.2 10^3/uL (1.8-7.7); NEUTROPHILS % 50.6 % (36.0-66.0); PLATELET COUNT, AUTOMATED 222 10^3/uL (150-450); RED CELL DISTRIBUTION WIDTH 15.4 % (11.5-14.5); WHITE BLOOD COUNT 4.4 10^3/uL (4.0-10.0)
[2018-04-14 19:15] LABS: ALBUMIN 3.7 GM/DL (3.2-5.2); ALKALINE PHOSPHATASE 63 U/L (45-117); ALT/SGPT 14 U/L (12-78); ANION GAP 3 MEQ/L (8-16); AST/SGOT 15 U/L (7-37); BILIRUBIN,TOTAL 0.4 MG/DL (0.2-1.0); BLOOD UREA NITROGEN 10 MG/DL (7-18); CALCIUM LEVEL 8.8 MG/DL (8.8-10.2); CARBON DIOXIDE LEVEL 31 MEQ/L (21-32); CHLORIDE LEVEL 106 MEQ/L (98-107); CREATININE FOR GFR 0.79 MG/DL (0.55-1.30); GLOMERULAR FILTRATION RATE > 60.0 (>45); GLUCOSE, FASTING 86 MG/DL (70-100); POTASSIUM SERUM 4.6 MEQ/L (3.5-5.1); SODIUM LEVEL 140 MEQ/L (136-145); TOTAL PROTEIN 7.4 GM/DL (6.4-8.2)
[2018-04-14 19:24] LABS: TOTAL 25(OH) VITAMIN D 41.8 NG/ML (30.0-100.0)
[2018-04-14 19:34] LABS: ESTIMATED AVERAGE GLUCOSE 114 MG/DL (60-110); HEMOGLOBIN A1c 5.6 %
== END ==
LOC: M SFHCPLAZ 15:30
DX: E55.9 Vitamin D deficiency, unspecified (principal); R73.01 Impaired fasting glucose; J30.2 Other seasonal allergic rhinitis

== ENCOUNTER → 2018-05-12 | Outpatient (CLI) | payer OTHER | LOC: M RAD 06:10 | DX: I77.811 Abdominal aortic ectasia (principal) | CPT/HCPCS: 76775 ==

== ENCOUNTER → 2018-06-20 | Outpatient (CLI) | payer OTHER ==
[~2018-06-20] MED LIST changes: +ACET1TAB55 PO; +ASPI81TA24 PO; +CALCTAB6 PO; +CALCTAB89 PO; +CLAR10CA3 PO; +COUM2TAB22 PO; +FURO40TA2 PO; +HM C500T3 PO; -IBUP200C10; +IBUP200C25; +K-TA1TAB PO; +KLOR20TA42 PO; +LASI40TA9 PO; +LORA-243 PO; -LORA10TA2 PO; +METO1TAB87 PO; +VITA100T20 PO; +VITA1CAP2 PO; -VITA1CAP40 PO; +VITA50005 PO; +VITA500C24 PO
[2018-06-20 11:17] LABS: HEMATOCRIT 41.3 % (36.0-47.0); MEAN CORPUSCULAR HEMOGLOBIN 27.1 pg (27.0-33.0); MEAN CORPUSCULAR HGB CONC 31.5 g/dl (32.0-36.5); MEAN CORPUSCULAR VOLUME 86.2 fl (80.0-96.0); PLATELET COUNT, AUTOMATED 187 10^3/uL (150-450); RED BLOOD COUNT 4.79 10^6/uL (4.00-5.40); WHITE BLOOD COUNT 4.9 10^3/uL (4.0-10.0)
[2018-06-20 11:25] LABS: FERRITIN 31 NG/ML (8-252); IRON (FE) 76 UG/DL (50-170)
== END ==
LOC: M LAB 10:29
PROVIDERS: ATTEND Internal Medicine Cardiovascular Disease
DX: I48.0 Paroxysmal atrial fibrillation (principal)

== ENCOUNTER → 2018-12-28 | Outpatient (CLI) | payer OTHER ==
[~2018-12-28] MED LIST changes: -/ADVA50050 INH; -/LORA10TA PO; -/WARF25TA PO; +ADVA1AER2 INH; +COUM1TAB18 PO; -DULO1CAP PO; +DULO1CAP4 PO; -DULO30CA PO; +DULO30CA9 PO; +LORA-385 PO; +OMEP20CA4 PO; +VITA-183 PO; -VITA100T20 PO; +VITA100T51 PO; -VITA1CAP2 PO
--- NOTE | 2018-12-28 11:17 | REP ---
BILATERAL SCREENING DIGITAL MAMMOGRAM WITH 3D TOMOSYNTHESIS: There are no palpable abnormalities or other breast complaints. The the patient states she had a clinical breast examination ? October 01, 2018. The the patient states she performs self-breast examinations 12 times free air. The Tyrer Cuzick Score is: 14.1% . Comparison is 12/31/2016. There are no other comparisons. The breasts are heterogeneously dense, which could obscure small masses. There is no dominant mass, micro calcific cluster or architectural distortion that would indicate malignancy. There are coarse benign calcifications bilaterally. There is a surgical clip are posteriorly in the left breast on the CC view, not identified on the MLO view and not identified on the comparison study. There are no additional findings on 3D tomosynthesiss. There is no change from the prior study. Impression: BIRADS/ACR category 2 mammogram. Benign findings. Recommendation: Routine annual screening mammography. Because of the increased breast density, annual adjunctive breast MRI in addition to screening mammography is recommended. This mammogram was interpreted with the aid of a FDA approved computer-aided detection system. A. Negative mammogram reports should not delay biopsy if a dominant or clinically suspicious mass is present. B. Not all breast cancers are identified by mammography or tomosynthesis. C. Adenosis and dense breasts may obscure an underlying neoplasm. Patient letter M1 dense breasts. Electronically Signed by Brian Alicea MD 12/28/2018 11:09 A
== END ==
LOC: M WHC 09:42
PROVIDERS: ATTEND Physician Assistant Medical
DX: Z12.31 Encounter for screening mammogram for malignant neoplasm of breast (principal)

== ENCOUNTER → 2019-01-19 | Outpatient (REF) | payer OTHER, MEDICAID ==
[~2019-01-19] MED LIST changes: +ZETI10TA16 PO; -ZETI10TA30 PO
[2019-01-19 17:54] LABS: APPEARANCE, URINE CLEAR (CLEAR); BACTERIA, URINE AUTO NEGATIVE (NEGATIVE); BILIRUBIN, URINE AUTO NEGATIVE (NEGATIVE); BLOOD, URINE BLOOD NEGATIVE (NEGATIVE); COLOR, URINE YELLOW (YELLOW); GLUCOSE, URINE (UA) AUTO NEGATIVE (NEGATIVE); KETONE, URINE AUTO NEGATIVE (NEGATIVE); LEUKOCYTE ESTERASE, URINE AUTO NEGATIVE (NEGATIVE); NITRITE, URINE AUTO NEGATIVE (NEGATIVE); PROTEIN, URINE AUTO NEGATIVE (NEGATIVE); RBC, URINE AUTO 1 /HPF (0-3); SPECIFIC GRAVITY URINE AUTO 1.008 (1.002-1.035); SQUAMOUS EPITHELIAL CELL UR AU 0 /HPF (0-6); UROBILINOGEN, URINE AUTO 0.2 mg/dL (0.0-2.0); WBC, URINE AUTO 1 /HPF (0-3)
== END ==
LOC: M SFHCPLAZ 15:48
PROVIDERS: ATTEND Physician Assistant Medical
DX: I10 Essential (primary) hypertension (principal)

== ENCOUNTER → 2019-01-20 | Outpatient (REF) | payer OTHER, MEDICAID ==
[2019-01-20 14:09] LABS: BASO # 0.1 10^3/uL (0.0-0.2); BASO % 1.1 % (0.0-1.0); EOS # 0.2 10^3/uL (0.0-0.50); EOS % 3.5 % (0.0-3.0); HEMOGLOBIN 13.2 g/dl (12.0-15.5); LYMPH # 1.6 10^3/uL (1.5-4.5); LYMPH % 29.2 % (24.0-44.0); MEAN CORPUSCULAR HEMOGLOBIN 30.1 pg (27.0-33.0); MEAN CORPUSCULAR HGB CONC 32.2 g/dl (32.0-36.5); MEAN CORPUSCULAR VOLUME 93.6 fl (80.0-96.0); MONO # 0.4 10^3/uL (0.0-0.8); MONO % 7.1 % (0.0-5.0); NEUTROPHILS # 3.2 10^3/uL (1.8-7.7); NEUTROPHILS % 58.9 % (36.0-66.0); PLATELET COUNT, AUTOMATED 155 10^3/uL (150-450); RED BLOOD COUNT 4.38 10^6/uL (4.00-5.40); WHITE BLOOD COUNT 5.4 10^3/uL (4.0-10.0)
[2019-01-20 14:53] LABS: PERCENT SATURATION 24.6 % (13.2-45.0)
[2019-01-20 16:07] LABS: PTH INTACT 47.6 PG/ML (18.5-88.0); TOTAL 25(OH) VITAMIN D 36.9 NG/ML (30.0-100.0)
== END ==
LOC: M SFHCPLAZ 12:29
PROVIDERS: ATTEND Physician Assistant Medical
DX: D50.8 Other iron deficiency anemias (principal); E53.8 Deficiency of other specified B group vitamins; E55.9 Vitamin D deficiency, unspecified

== ENCOUNTER → 2019-07-06 | Outpatient (REF) | payer MEDICARE, OTHER, MEDICAID ==
[~2019-07-06] MED LIST changes: +CARV12.5 PO; +CARV6.25 PO; +DOXY100C37 PO; +MV-M1TAB13 PO; +OMEP1CAP73 PO; -OMEP20CA4 PO; +PRED20TA PO; +PROV108A INH
[2019-07-06 16:10] LABS: BASO # 0.1 10^3/uL (0.0-0.2); BASO % 1.7 % (0.0-1.0); EOS # 0.2 10^3/uL (0.0-0.5); EOS % 5.1 % (0.0-3.0); HEMATOCRIT 44.3 % (36.0-47.0); HEMOGLOBIN 13.9 g/dl (12.0-15.5); LYMPH # 1.4 10^3/uL (1.5-5.0); LYMPH % 32.8 % (24.0-44.0); MEAN CORPUSCULAR HGB CONC 31.4 g/dl (32.0-36.5); MEAN CORPUSCULAR VOLUME 95.5 fl (80.0-96.0); MONO # 0.3 10^3/uL (0.0-0.8); NEUTROPHILS # 2.1 10^3/uL (1.5-8.5); NEUTROPHILS % 52.2 % (36.0-66.0); PLATELET COUNT, AUTOMATED 176 10^3/uL (150-450); RED BLOOD COUNT 4.64 10^6/uL (4.00-5.40); WHITE BLOOD COUNT 4.1 10^3/uL (4.0-10.0)
[2019-07-06 16:25] LABS: HEMOGLOBIN A1c 5.6 %
[2019-07-06 16:47] LABS: ALBUMIN 3.7 GM/DL (3.2-5.2); ALT/SGPT 19 U/L (12-78); BILIRUBIN,TOTAL 1.2 MG/DL (0.2-1.0); BLOOD UREA NITROGEN 12 MG/DL (7-18); CALCIUM LEVEL 8.7 MG/DL (8.8-10.2); CARBON DIOXIDE LEVEL 32 MEQ/L (21-32); CHLORIDE LEVEL 105 MEQ/L (98-107); CREATININE FOR GFR 0.87 MG/DL (0.55-1.30); GLOMERULAR FILTRATION RATE > 60.0 (>45); GLUCOSE, FASTING 87 MG/DL (70-100); POTASSIUM SERUM 4.4 MEQ/L (3.5-5.1); SODIUM LEVEL 142 MEQ/L (136-145); TOTAL PROTEIN 7.3 GM/DL (6.4-8.2)
== END ==
LOC: M SFHCPLAZ 14:05
PROVIDERS: ATTEND Physician Assistant Medical
DX: R73.01 Impaired fasting glucose (principal); I10 Essential (primary) hypertension

== ENCOUNTER 2019-07-13 05:20 | Emergency (ER) | payer MEDICARE, MEDICAID ==
[~2019-07-13] VITALS: Ht 149.9 cm; Wt 63.6 kg
[~2019-07-13 05:20] MED LIST changes: -CARV12.5 PO; -CARV6.25 PO; -DOXY100C37 PO; -MV-M1TAB13 PO; -PRED20TA PO; -PROV108A INH
[2019-07-13] MEDS ORDERED: CARV6.25 PO ×2 (05:41→05:46)
[2019-07-13] MEDS ORDERED: CARV12.5 PO ×2 (05:41→05:46)
[2019-07-13] MEDS ORDERED: MV-M1TAB13 PO (05:42)
[2019-07-13] MEDS ORDERED: dexameTHASONE 20 MG/5 ML VIAL (J1100) IV ONE (06:00)
[2019-07-13] MEDS ORDERED: IPRATROPIUM 0.5MG/ALBUTEROL 2.5MG INH SOL UD 3ML (DUONEB)(J7620) NEB ONE (06:00)
[2019-07-13 06:13] LABS: VENOUS HCO3 29.5 MEQ/L (23.0-27.0); VENOUS O2 SATURATION 56.6 % (60.0-80.0); VENOUS PARTIAL PRESSURE CO2 58.4 mmHg (38.0-50.0); VENOUS PH 7.322 UNITS (7.330-7.430); VENOUS STANDARD HCO3 25.3 MEQ/L; VENOUS TOTAL CO2 31.3 MEQ/L (24.0-28.0)
[2019-07-13 06:25] LABS: BASO % 1.2 % (0.0-1.0); EOS # 0.2 10^3/uL (0.0-0.5); EOS % 6.5 % (0.0-3.0); HEMATOCRIT 43.6 % (36.0-47.0); HEMOGLOBIN 13.8 g/dl (12.0-15.5); LYMPH # 0.6 10^3/uL (1.5-5.0); LYMPH % 17.4 % (24.0-44.0); MEAN CORPUSCULAR HGB CONC 31.7 g/dl (32.0-36.5); MEAN CORPUSCULAR VOLUME 94.8 fl (80.0-96.0); MONO # 0.4 10^3/uL (0.0-0.8); MONO % 13.4 % (0.0-5.0); NEUTROPHILS % 61.2 % (36.0-66.0); PLATELET COUNT, AUTOMATED 129 10^3/uL (150-450); WHITE BLOOD COUNT 3.2 10^3/uL (4.0-10.0)
[2019-07-13 06:43] LABS: BLOOD UREA NITROGEN 12 MG/DL (7-18); CALCIUM LEVEL 8.5 MG/DL (8.8-10.2); CARBON DIOXIDE LEVEL 30 MEQ/L (21-32); CHLORIDE LEVEL 108 MEQ/L (98-107); CREATININE FOR GFR 0.88 MG/DL (0.55-1.30); GLOMERULAR FILTRATION RATE > 60.0 (>45); GLUCOSE, FASTING 107 MG/DL (70-100); POTASSIUM SERUM 3.9 MEQ/L (3.5-5.1); SODIUM LEVEL 142 MEQ/L (136-145)
[2019-07-13 06:44] LABS: INFLUENZA A AMPLIFICATION NEGATIVE (NEGATIVE); INFLUENZA B AMPLIFICATION NEGATIVE (NEGATIVE)
--- NOTE | 2019-07-13 06:50 | REP ---
Clinical: Cough. Technique: PA and lateral. Comparison: 11/09/2016. Findings: Mediastinum and cardiac silhouette are stable/normal. Evidence for prior cardiac valve repair. Hiatal hernia. Lung you demonstrate chronic-appearing changes without acute consolidation, effusion, or pneumothorax. Skeletal structures are intact. Impression: No obvious acute cardiopulmonary process appreciated. Electronically Signed by Ranulfo Tsang MD 07/13/2019 06:41 A
[2019-07-13] MEDS ORDERED: ISOVUE-370 76% 100ML VIAL (Q9967) As Ordered ONE (07:37)
--- NOTE | 2019-07-13 08:00 | REPVR ---
PROCEDURE INFORMATION: Exam: CT Angiography Chest With Contrast Exam date and time: 07/13/2019 7:21 AM Age: 64 years old Clinical indication: Shortness of breath; Additional info: Hypoxia, shortness of breath TECHNIQUE: Imaging protocol: Computed tomographic angiography of the chest with intravenous contrast. 3D rendering: MIP and/or 3D reconstructed images were created by the technologist. Radiation optimization: All CT scans at this facility use at least one of these dose optimization techniques: automated exposure control; mA and/or kV adjustment per patient size (includes targeted exams where dose is matched to clinical indication); or iterative reconstruction. Contrast material: ISOVUE 370; Contrast volume: 75 ml; Contrast route: IV; COMPARISON: CR Chest, 2 view PA, Lat 07/13/2019 5:46 AM FINDINGS: Pulmonary arteries: Normal. No pulmonary emboli. Aorta: Ascending thoracic aorta measures 3.7 cm in diameter. Aortic arch measures 2.7 cm. Descending thoracic aorta measures 2.2 cm. No aortic rupture. Tracheobronchial tree: Diffuse bronchial wall thickening. Lungs: Scattered linear atelectasis. No acute consolidation. Pleural space: Unremarkable. No pneumothorax. No pleural effusion. Heart: Status post aortic valve replacement. Heart size is within normal limits. Gallbladder and bile ducts: Status post cholecystectomy. Stomach and bowel: Moderate sliding type gastric hiatal hernia. Lymph nodes: Unremarkable. No enlarged lymph nodes. Bones/joints: Unremarkable. No acute fracture. Soft tissues: Surgical clips in the ventral right hemithorax. IMPRESSION: 1. Negative for pulmonary embolism. 2. Diffuse bronchial wall thickening. Consistent with bronchitis. 3. Moderate sliding type gastric hiatal hernia. 4. Additional findings as described. Electronically signed by: Marian Wong On 07/13/2019 07:59:57 AM
[2019-07-13] MEDS ORDERED: PRED20TA PO ×2 (08:11→08:34)
[2019-07-13] MEDS ORDERED: DOXY100C37 PO ×2 (08:12→08:34)
[2019-07-13] MEDS ORDERED: PROV108A INH ×2 (08:16→08:34)
[2019-07-13 08:30] VITALS: BP 112/66
--- NOTE | 2019-07-14 13:14 | ECGEPIP ---
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
== END 2019-07-13 08:40 | disposition home or self-care (01) ==
LOC: M ED 05:20
DX: J40 Bronchitis, not specified as acute or chronic (principal); I10 Essential (primary) hypertension; Z79.899 Other long term (current) drug therapy; Z79.82 Long term (current) use of aspirin; Z88.5 Allergy status to narcotic agent; Z88.8 Allergy status to other drugs, medicaments and biological substances; Z87.891 Personal history of nicotine dependence
CPT/HCPCS: 71046; 71275; 80048; 82803; 85025; 87040; 87486; 87502; 87581; 87633; 87798; 93005; 94640; 96374; 99284; J1100; Q9967

== ENCOUNTER → 2019-11-03 | Outpatient (REF) | payer OTHER ==
[~2019-11-03] MED LIST changes: +CARV12.5 PO; +CARV6.25 PO; +DOXY100C37 PO; +MV-M1TAB13 PO; +PRED20TA PO; +PROV108A INH
[2019-11-03 11:15] LABS: BASO # 0.1 10^3/uL (0.0-0.2); BASO % 1.6 % (0.0-1.0); EOS # 0.2 10^3/uL (0.0-0.5); EOS % 4.5 % (0.0-3.0); HEMATOCRIT 43.7 % (36.0-47.0); HEMOGLOBIN 14.4 g/dl (12.0-15.5); LYMPH # 1.1 10^3/uL (1.5-5.0); LYMPH % 29.8 % (24.0-44.0); MEAN CORPUSCULAR HEMOGLOBIN 30.4 pg (27.0-33.0); MEAN CORPUSCULAR VOLUME 92.4 fl (80.0-96.0); MONO # 0.4 10^3/uL (0.0-0.8); MONO % 9.3 % (0.0-5.0); NEUTROPHILS # 2.1 10^3/uL (1.5-8.5); NEUTROPHILS % 54.5 % (36.0-66.0); PLATELET COUNT, AUTOMATED 161 10^3/uL (150-450); RED BLOOD COUNT 4.73 10^6/uL (4.00-5.40); WHITE BLOOD COUNT 3.8 10^3/uL (4.0-10.0)
[2019-11-03 11:29] LABS: FREE T4 1.17 NG/DL (0.76-1.46); THYROID STIMULATING HORMONE 1.71 uIU/ML (0.358-3.740)
[2019-11-03 11:34] LABS: TOTAL 25(OH) VITAMIN D 34.9 NG/ML (30.0-100.0)
[2019-11-03 14:50] LABS: HEMOGLOBIN A1c 5.6 %
== END ==
LOC: M PLALAB 09:33
PROVIDERS: ATTEND Physician Assistant Medical
DX: I10 Essential (primary) hypertension (principal); R73.01 Impaired fasting glucose; D50.8 Other iron deficiency anemias; E66.9 Obesity, unspecified; E55.9 Vitamin D deficiency, unspecified; E53.8 Deficiency of other specified B group vitamins

== ENCOUNTER → 2020-09-19 | Outpatient (REF) | payer MEDICARE, MEDICAID ==
[~2020-09-19] MED LIST changes: +CALC600T63 PO; -CALCTAB6 PO; +ENAL-36 PO; -HM C500T3 PO; +HM C500T4 PO; +LABE100T4 PO; -LABE10TAB PO
[2020-09-19 15:39] LABS: BASO # 0.1 10^3/uL (0.0-0.2); BASO % 1.4 % (0.0-1.0); EOS # 0.1 10^3/uL (0.0-0.5); EOS % 1.8 % (0.0-3.0); HEMATOCRIT 44.6 % (36.0-47.0); HEMOGLOBIN 14.3 g/dl (12.0-15.5); LYMPH # 1.6 10^3/uL (1.5-5.0); LYMPH % 32.7 % (24.0-44.0); MEAN CORPUSCULAR HEMOGLOBIN 30.3 pg (27.0-33.0); MEAN CORPUSCULAR HGB CONC 32.1 g/dl (32.0-36.5); MEAN CORPUSCULAR VOLUME 94.5 fl (80.0-96.0); MONO # 0.4 10^3/uL (0.0-0.8); MONO % 7.6 % (2.0-8.0); NEUTROPHILS # 2.8 10^3/uL (1.5-8.5); NEUTROPHILS % 56.3 % (36.0-66.0); PLATELET COUNT, AUTOMATED 175 10^3/uL (150-450); RED BLOOD COUNT 4.72 10^6/uL (4.00-5.40)
[2020-09-19 16:07] LABS: HEMOGLOBIN A1c 5.2 %
[2020-09-19 16:12] LABS: ALBUMIN 3.8 GM/DL (3.2-5.2); ALT/SGPT 22 U/L (12-78); BILIRUBIN,TOTAL 1.2 MG/DL (0.2-1.0); BLOOD UREA NITROGEN 15 MG/DL (7-18); CALCIUM LEVEL 9.2 MG/DL (8.8-10.2); CARBON DIOXIDE LEVEL 32 MEQ/L (21-32); CHLORIDE LEVEL 105 MEQ/L (98-107); CHOLESTEROL LEVEL 225 MG/DL (<200); CHOLESTEROL RISK RATIO 2.556 (<5); CREATININE FOR GFR 0.83 MG/DL (0.55-1.30); FERRITIN 46 NG/ML (8-252); FREE T4 0.99 NG/DL (0.76-1.46); GLOMERULAR FILTRATION RATE > 60.0 (>45); GLUCOSE, FASTING 87 MG/DL (70-100); HDL CHOLESTEROL 88 MG/DL (>40); IRON (FE) 106 UG/DL (50-170); LDL CHOLESTEROL 123 MG/DL (<100); NON-HDL-C 137 MG/DL; SODIUM LEVEL 139 MEQ/L (136-145); TOTAL PROTEIN 7.6 GM/DL (6.4-8.2); TRIGLYCERIDES LEVEL 71 MG/DL (<150)
[2020-09-19 16:17] LABS: PTH INTACT 64.8 PG/ML (18.5-88.0); TOTAL 25(OH) VITAMIN D 30.4 NG/ML (30.0-100.0); VITAMIN B12 LEVEL 1291 PG/ML (247-911)
== END ==
LOC: M SFHCPLAZ 13:40
PROVIDERS: ATTEND Physician Assistant Medical
DX: E53.8 Deficiency of other specified B group vitamins (principal); I10 Essential (primary) hypertension; R73.01 Impaired fasting glucose; E55.9 Vitamin D deficiency, unspecified; E66.9 Obesity, unspecified; D50.8 Other iron deficiency anemias; Z13.220 Encounter for screening for lipoid disorders; Z79.899 Other long term (current) drug therapy

== ENCOUNTER → 2020-11-06 | Outpatient (REF) | payer OTHER | LOC: M SFHCWAGY 12:38 | PROVIDERS: ATTEND Nurse Practitioner Women's Health | DX: Z12.4 Encounter for screening for malignant neoplasm of cervix (principal); N95.2 Postmenopausal atrophic vaginitis ==

== ENCOUNTER → 2020-11-06 | Outpatient (CLI) | payer OTHER ==
--- NOTE | 2020-11-06 13:57 | REPMRS ---
Patient History The patient states she had a clinical breast exam in October 2020. Family history of colorectal cancer at age 50 or over in father, breast cancer at age 50 or over in maternal cousin, breast cancer under age 50 in maternal aunt. Patient states no breast complaints today. Patient has signed MRS History Sheet. Digital Woman Screen Mammo: November 06, 2020 - Exam #: [id number] Bilateral CC and MLO view(s) were taken. Technologist: RT Oriana Prior study comparison: December 28, 2018, bilateral digital woman screen mammo performed at [facility]. December 31, 2016, digital woman screen mammo performed at [facility]. FINDINGS: The breast tissue is heterogeneously dense. This may lower the sensitivity of mammography. The Volpara volumetric breast density category is: C. There is a moderate amount of heterogeneously dense fibroglandular tissue which is fairly symmetric. There is no interval development of dominant mass, architectural distortion, or grouped microcalcification typical of malignancy. There has been no change in the appearance of the mammogram from the prior studies. 3-D tomosynthesis shows no additional findings. Assessment: BI-RADS/ACR category 1 mammogram. Negative Mammogram. Recommendation Routine screening mammogram of both breasts in 1 year (for women over age 40). This patient's [facility] Lifetime Breast Cancer RIsk is estimated at 12.8 %. This mammogram was interpreted with the aid of an FDA-approved computer-aided dectection system. Electronically Signed By: Frederic Fu MD 11/06/20 [id number]
== END ==
LOC: M WHC 10:16
PROVIDERS: ATTEND Physician Assistant Medical
DX: Z12.31 Encounter for screening mammogram for malignant neoplasm of breast (principal); Z80.0 Family history of malignant neoplasm of digestive organs

== ENCOUNTER → 2021-01-23 | Outpatient (CLI) | payer MEDICARE, MEDICAID ==
[~2021-01-23] MED LIST changes: -DOXY100C37 PO; +DOXY1CAP62 PO
[2021-01-23 17:21] LABS: HEMOGLOBIN A1c 5.3 %
== END ==
LOC: M PLALAB 14:33
PROVIDERS: ATTEND Physician Assistant Medical
DX: R73.01 Impaired fasting glucose (principal)

== ENCOUNTER → 2021-09-11 | Outpatient (CLI) | payer MEDICARE, MEDICAID ==
[~2021-09-11] MED LIST changes: +DOXY-443 PO; -DOXY1CAP62 PO; -KLOR20TA42 PO; +POTA-141 PO
[2021-09-11 17:07] LABS: BASO # 0.1 10^3/uL (0.0-0.2); BASO % 1.4 % (0.0-1.0); EOS # 0.2 10^3/uL (0.0-0.5); EOS % 4.5 % (0.0-3.0); HEMATOCRIT 44.3 % (36.0-47.0); HEMOGLOBIN 14.4 g/dl (12.0-15.5); LYMPH # 1.5 10^3/uL (1.5-5.0); LYMPH % 34.9 % (24.0-44.0); MEAN CORPUSCULAR HEMOGLOBIN 30.6 pg (27.0-33.0); MEAN CORPUSCULAR HGB CONC 32.5 g/dl (32.0-36.5); MEAN CORPUSCULAR VOLUME 94.1 fl (80.0-96.0); MONO # 0.5 10^3/uL (0.0-0.8); MONO % 11.8 % (2.0-8.0); NEUTROPHILS % 47.2 % (36.0-66.0); PLATELET COUNT, AUTOMATED 164 10^3/uL (150-450); RED BLOOD COUNT 4.71 10^6/uL (4.00-5.40); WHITE BLOOD COUNT 4.2 10^3/uL (4.0-10.0)
[2021-09-11 17:26] LABS: ALBUMIN 3.9 GM/DL (3.2-5.2); ALT/SGPT 20 U/L (12-78); BILIRUBIN,TOTAL 0.8 MG/DL (0.2-1.0); BLOOD UREA NITROGEN 19 MG/DL (7-18); CALCIUM LEVEL 9.3 MG/DL (8.8-10.2); CARBON DIOXIDE LEVEL 34 MEQ/L (21-32); CHLORIDE LEVEL 106 MEQ/L (98-107); CHOLESTEROL LEVEL 213 MG/DL (<200); CHOLESTEROL RISK RATIO 2.662 (<5); CREATININE FOR GFR 0.83 MG/DL (0.55-1.30); GLOMERULAR FILTRATION RATE > 60.0 (>45); GLUCOSE, FASTING 87 MG/DL (70-100); HDL CHOLESTEROL 80 MG/DL (>40); LDL CHOLESTEROL 114 MG/DL (<100); NON-HDL-C 133 MG/DL; POTASSIUM SERUM 4.9 MEQ/L (3.5-5.1); SODIUM LEVEL 143 MEQ/L (136-145); TOTAL PROTEIN 7.8 GM/DL (6.4-8.2); TRIGLYCERIDES LEVEL 94 MG/DL (<150)
[2021-09-11 17:33] LABS: TOTAL 25(OH) VITAMIN D 31.4 NG/ML (30.0-100.0)
[2021-09-11 17:34] LABS: PTH INTACT 65.3 PG/ML (18.5-88.0); VITAMIN B12 LEVEL 894 PG/ML (247-911)
[2021-09-11 17:58] LABS: HEMOGLOBIN A1c 5.6 %
== END ==
LOC: M PLALAB 14:43
PROVIDERS: ATTEND Physician Assistant Medical
DX: Z13.220 Encounter for screening for lipoid disorders (principal); R73.01 Impaired fasting glucose; E55.9 Vitamin D deficiency, unspecified; E53.8 Deficiency of other specified B group vitamins; Z79.82 Long term (current) use of aspirin; Z79.51 Long term (current) use of inhaled steroids; Z79.899 Other long term (current) drug therapy

== ENCOUNTER → 2021-11-07 | Outpatient (CLI) | payer MEDICARE, MEDICAID | LOC: M WHC 10:45 | PROVIDERS: ATTEND Physician Assistant Medical | DX: Z12.31 Encounter for screening mammogram for malignant neoplasm of breast (principal) ==

== ENCOUNTER → 2022-07-10 | Outpatient (REF) ==
[~2022-07-10] MED LIST changes: +ALBU6.7H6 INH; -LABE100T4 PO; +LABE100T6 PO; -PROV108A INH
== END ==
LOC: M EMP 15:04
PROVIDERS: ATTEND Family Medicine
DX: Z11.52 Encounter for screening for COVID-19 (principal)

== ENCOUNTER → 2022-07-14 | Outpatient (REF) | LOC: M EMP 09:10 | PROVIDERS: ATTEND Family Medicine | DX: Z11.52 Encounter for screening for COVID-19 (principal) ==

== ENCOUNTER → 2022-08-27 | Outpatient (CLI) | payer MEDICARE, MEDICAID ==
[~2022-08-27] MED LIST changes: -ENAL-36 PO; +ENAL1TAB50 PO
[2022-08-27 19:17] LABS: BASO # 0.1 10^3/uL (0.0-0.2); BASO % 1.1 % (0.0-1.0); EOS # 0.2 10^3/uL (0.0-0.5); EOS % 2.8 % (0.0-3.0); HEMATOCRIT 42.1 % (36.0-47.0); HEMOGLOBIN 13.7 g/dl (12.0-15.5); LYMPH # 1.8 10^3/uL (1.5-5.0); LYMPH % 32.3 % (24.0-44.0); MEAN CORPUSCULAR HEMOGLOBIN 30.9 pg (27.0-33.0); MEAN CORPUSCULAR HGB CONC 32.5 g/dl (32.0-36.5); MONO # 0.4 10^3/uL (0.0-0.8); MONO % 8.1 % (2.0-8.0); NEUTROPHILS % 55.5 % (36.0-66.0); PLATELET COUNT, AUTOMATED 180 10^3/uL (150-450); RED BLOOD COUNT 4.43 10^6/uL (4.00-5.40); WHITE BLOOD COUNT 5.4 10^3/uL (4.0-10.0)
[2022-08-27 19:37] LABS: IRON (FE) 86 UG/DL (50-170)
[2022-08-27 19:43] LABS: ALBUMIN 3.9 G/DL (3.2-5.2); ALKALINE PHOSPHATASE 69 U/L (46-116); ALT/SGPT 26 U/L (7.0-40); AST/SGOT 28 U/L (<34); BLOOD UREA NITROGEN 15 MG/DL (9-23); CALCIUM LEVEL 9.1 MG/DL (8.3-10.6); CARBON DIOXIDE LEVEL 32 MMOL/L (20-31); CHLORIDE LEVEL 105 MMOL/L (98-107); CREATININE FOR GFR 0.77 MG/DL (0.55-1.30); FERRITIN 22.4 NG/ML (7.3-270.7); FREE T4 1.06 NG/DL (0.89-1.76); GLOMERULAR FILTRATION RATE > 60.0 (>45); GLUCOSE, FASTING 88 MG/DL (74-106); POTASSIUM SERUM 4.9 MMOL/L (3.5-5.1); SODIUM LEVEL 140 MMOL/L (136-145); THYROID STIMULATING HORMONE 1.148 uIU/ML (0.55-4.78); TOTAL PROTEIN 7.2 G/DL (5.7-8.2)
== END ==
LOC: M PLALAB 14:48
PROVIDERS: ATTEND Physician Assistant Medical
DX: D50.8 Other iron deficiency anemias (principal); I10 Essential (primary) hypertension; E66.9 Obesity, unspecified

== ENCOUNTER → 2022-11-10 | Outpatient (CLI) | payer MEDICARE, MEDICAID | LOC: M WHC 09:08 | PROVIDERS: ATTEND Physician Assistant Medical | DX: Z12.31 Encounter for screening mammogram for malignant neoplasm of breast (principal) ==

== ENCOUNTER → 2023-03-02 | Outpatient (CLI) | payer MEDICARE, MEDICAID ==
[~2023-03-02] MED LIST changes: +EZET10TA58 PO; -ZETI10TA16 PO
[2023-03-02 16:26] LABS: BASO # 0.1 10^3/uL (0.0-0.2); BASO % 1.1 % (0.0-1.0); EOS # 0.1 10^3/uL (0.0-0.5); EOS % 2.6 % (0.0-3.0); HEMATOCRIT 41.6 % (36.0-47.0); HEMOGLOBIN 13.3 g/dl (12.0-15.5); LYMPH # 1.9 10^3/uL (1.5-5.0); LYMPH % 40.9 % (24.0-44.0); MEAN CORPUSCULAR HEMOGLOBIN 30.4 pg (27.0-33.0); MEAN CORPUSCULAR VOLUME 95.2 fl (80.0-96.0); MONO # 0.4 10^3/uL (0.0-0.8); MONO % 9.5 % (2.0-8.0); NEUTROPHILS # 2.1 10^3/uL (1.5-8.5); NEUTROPHILS % 45.7 % (36.0-66.0); PLATELET COUNT, AUTOMATED 166 10^3/uL (150-450); RED BLOOD COUNT 4.37 10^6/uL (4.00-5.40); WHITE BLOOD COUNT 4.6 10^3/uL (4.0-10.0)
[2023-03-02 16:37] LABS: IRON (FE) 93 UG/DL (50-170)
[2023-03-02 16:56] LABS: ALBUMIN 3.7 G/DL (3.2-5.2); ALKALINE PHOSPHATASE 65 U/L (46-116); ALT/SGPT 21 U/L (7.0-40); AST/SGOT 18 U/L (<34); BLOOD UREA NITROGEN 14 MG/DL (9-23); CALCIUM LEVEL 9.1 MG/DL (8.3-10.6); CARBON DIOXIDE LEVEL 31 MMOL/L (20-31); CHLORIDE LEVEL 104 MMOL/L (98-107); CHOLESTEROL LEVEL 210 MG/DL (<200); CHOLESTEROL RISK RATIO 2.55 (<5); CREATININE FOR GFR 0.75 MG/DL (0.55-1.30); FERRITIN 21.6 NG/ML (7.3-270.7); GLOMERULAR FILTRATION RATE > 60.0 (>45); GLUCOSE, FASTING 85 MG/DL (74-106); HDL CHOLESTEROL 82.2 MG/DL (>40); LDL CHOLESTEROL 115.2 MG/DL (<100); NON-HDL-C 127.8 MG/DL; POTASSIUM SERUM 4.4 MMOL/L (3.5-5.1); PTH INTACT 74.8 PG/ML (18.5-88.0); SODIUM LEVEL 140 MMOL/L (136-145); TOTAL 25(OH) VITAMIN D 30.4 NG/ML (20.0-100.0); TOTAL PROTEIN 7.3 G/DL (5.7-8.2); TRIGLYCERIDES LEVEL 63 MG/DL (<150); VITAMIN B12 LEVEL 721 PG/ML (211-911)
[2023-03-02 17:44] LABS: HEMOGLOBIN A1c 4.9 % (4.0-6.0)
== END ==
LOC: M PLALAB 14:17
PROVIDERS: ATTEND Physician Assistant Medical
DX: E55.9 Vitamin D deficiency, unspecified (principal); I10 Essential (primary) hypertension; E53.9 Vitamin B deficiency, unspecified; R73.01 Impaired fasting glucose; D50.8 Other iron deficiency anemias; Z13.220 Encounter for screening for lipoid disorders

== ENCOUNTER → 2023-10-07 | Outpatient (CLI) | payer MEDICARE, MEDICAID ==
[2023-10-07 15:38] LABS: BASO # 0.1 10^3/uL (0.0-0.2); BASO % 0.9 % (0.0-1.0); EOS # 0.1 10^3/uL (0.0-0.5); EOS % 2.6 % (0.0-3.0); HEMATOCRIT 41.9 % (36.0-47.0); HEMOGLOBIN 13.3 g/dl (12.0-15.5); LYMPH # 1.5 10^3/uL (1.5-5.0); LYMPH % 27.9 % (24.0-44.0); MEAN CORPUSCULAR HEMOGLOBIN 30.7 pg (27.0-33.0); MEAN CORPUSCULAR HGB CONC 31.7 g/dl (32.0-36.5); MEAN CORPUSCULAR VOLUME 96.8 fl (80.0-96.0); MONO # 0.4 10^3/uL (0.0-0.8); MONO % 7.5 % (2.0-8.0); NEUTROPHILS # 3.2 10^3/uL (1.5-8.5); NEUTROPHILS % 60.9 % (36.0-66.0); PLATELET COUNT, AUTOMATED 169 10^3/uL (150-450); RED BLOOD COUNT 4.33 10^6/uL (4.00-5.40); WHITE BLOOD COUNT 5.3 10^3/uL (4.0-10.0)
[2023-10-07 15:39] LABS: HEMOGLOBIN A1c 5.2 % (4.0-6.0)
[2023-10-07 16:00] LABS: CHOLESTEROL RISK RATIO 3.05 (<5); FERRITIN 21.3 NG/ML (7.3-270.7); FREE T4 1.06 NG/DL (0.89-1.76); HDL CHOLESTEROL 66.8 MG/DL (>40); LDL CHOLESTEROL 115.4 MG/DL (<100); NON-HDL-C 137.2 MG/DL; PTH INTACT 74.7 PG/ML (18.5-88.0); THYROID STIMULATING HORMONE 1.449 uIU/ML (0.55-4.78)
[2023-10-07 16:03] LABS: TOTAL 25(OH) VITAMIN D 26.9 NG/ML (20.0-100.0)
== END ==
LOC: M PLALAB 13:45
PROVIDERS: ATTEND Physician Assistant Medical
DX: E55.9 Vitamin D deficiency, unspecified (principal); D50.8 Other iron deficiency anemias; E53.8 Deficiency of other specified B group vitamins; E66.9 Obesity, unspecified; R73.01 Impaired fasting glucose; Z13.220 Encounter for screening for lipoid disorders; Z79.899 Other long term (current) drug therapy

== ENCOUNTER → 2024-03-08 | Outpatient (CLI) | payer MEDICARE, MEDICAID ==
[~2024-03-08] MED LIST changes: +DOXY-323 PO; -DOXY-443 PO
[2024-03-08 18:40] LABS: BASO # 0.1 10^3/uL (0.0-0.2); BASO % 1.5 % (0.0-1.0); EOS # 0.2 10^3/uL (0.0-0.5); EOS % 3.6 % (0.0-3.0); HEMATOCRIT 41.7 % (36.0-47.0); HEMOGLOBIN 13.5 g/dl (12.0-15.5); LYMPH # 1.8 10^3/uL (1.5-5.0); MEAN CORPUSCULAR HGB CONC 32.4 g/dl (32.0-36.5); MEAN CORPUSCULAR VOLUME 95.9 fl (80.0-96.0); MONO # 0.5 10^3/uL (0.0-0.8); MONO % 11.4 % (2.0-8.0); NEUTROPHILS # 1.6 10^3/uL (1.5-8.5); NEUTROPHILS % 39.3 % (36.0-66.0); PLATELET COUNT, AUTOMATED 185 10^3/uL (150-450); RED BLOOD COUNT 4.35 10^6/uL (4.00-5.40); WHITE BLOOD COUNT 4.1 10^3/uL (4.0-10.0)
[2024-03-08 19:06] LABS: ALBUMIN 3.5 G/DL (3.2-5.2); ALKALINE PHOSPHATASE 69 U/L (46-116); ALT/SGPT 19 U/L (7.0-40); AST/SGOT 16 U/L (<34); BILIRUBIN,TOTAL 0.7 MG/DL (0.3-1.2); BLOOD UREA NITROGEN 17 MG/DL (9-23); CALCIUM LEVEL 9.1 MG/DL (8.3-10.6); CARBON DIOXIDE LEVEL 33 MMOL/L (20-31); CHLORIDE LEVEL 106 MMOL/L (98-107); CREATININE FOR GFR 0.76 MG/DL (0.55-1.30); GLOMERULAR FILTRATION RATE > 60.0 (>45); GLUCOSE, FASTING 74 MG/DL (74-106); IRON (FE) 102 UG/DL (50-170); POTASSIUM SERUM 4.7 MMOL/L (3.5-5.1); PTH INTACT 65.7 PG/ML (18.5-88.0); SODIUM LEVEL 139 MMOL/L (136-145)
[2024-03-08 19:08] LABS: FERRITIN 37.6 NG/ML (7.3-270.7); TOTAL 25(OH) VITAMIN D 30.2 NG/ML (20.0-100.0)
[2024-03-08 19:44] LABS: HEMOGLOBIN A1c 5.4 % (4.0-6.0)
== END ==
LOC: M PLALAB 13:57
PROVIDERS: ATTEND Physician Assistant Medical
DX: D50.8 Other iron deficiency anemias (principal); E55.9 Vitamin D deficiency, unspecified; R73.01 Impaired fasting glucose; Z13.220 Encounter for screening for lipoid disorders

== ENCOUNTER → 2024-10-09 | Outpatient (CLI) | payer MEDICARE, MEDICAID ==
[~2024-10-09] MED LIST changes: +ADVA1AER8 INH; -DOXY-323 PO; +DOXY-441 PO
[2024-10-09 14:00] LABS: BASO # 0.1 10^3/uL (0.0-0.2); BASO % 1.2 % (0.0-1.0); EOS # 0.1 10^3/uL (0.0-0.5); EOS % 3.5 % (0.0-3.0); HEMATOCRIT 41.9 % (36.0-47.0); HEMOGLOBIN 13.3 g/dl (12.0-15.5); LYMPH # 1.4 10^3/uL (1.5-5.0); LYMPH % 34.2 % (24.0-44.0); MEAN CORPUSCULAR HEMOGLOBIN 30.4 pg (27.0-33.0); MEAN CORPUSCULAR HGB CONC 31.7 g/dl (32.0-36.5); MEAN CORPUSCULAR VOLUME 95.7 fl (80.0-96.0); MONO # 0.4 10^3/uL (0.0-0.8); MONO % 9.9 % (2.0-8.0); NEUTROPHILS # 2.1 10^3/uL (1.5-8.5); PLATELET COUNT, AUTOMATED 150 10^3/uL (150-450); RED BLOOD COUNT 4.38 10^6/uL (4.00-5.40)
[2024-10-09 14:20] LABS: HEMOGLOBIN A1c 5.4 % (4.0-6.0)
[2024-10-09 14:22] LABS: ALBUMIN 3.6 G/DL (3.2-5.2); BILIRUBIN,TOTAL 0.9 MG/DL (0.3-1.2); CALCIUM LEVEL 9.4 MG/DL (8.3-10.6); CREATININE FOR GFR 0.74 MG/DL (0.55-1.30); POTASSIUM SERUM 4.6 MMOL/L (3.5-5.1); TOTAL PROTEIN 7.2 G/DL (5.7-8.2)
[2024-10-09 14:23] LABS: FERRITIN 28.6 NG/ML (7.3-270.7)
== END ==
LOC: M PLALAB 12:06
PROVIDERS: ATTEND Physician Assistant Medical
DX: E66.9 Obesity, unspecified (principal); D50.8 Other iron deficiency anemias; I10 Essential (primary) hypertension; Z13.220 Encounter for screening for lipoid disorders

== ENCOUNTER → 2025-03-30 | Outpatient (REF) ==
[~2025-03-30] MED LIST changes: +CRAN500T4 PO; -HM C500T4 PO
== END ==
LOC: M LAB 10:55
PROVIDERS: ATTEND Family Medicine
DX: Z02.89 Encounter for other administrative examinations (principal)

== ENCOUNTER → 2025-04-09 | Outpatient (CLI) | payer MEDICARE, MEDICAID ==
[2025-04-09 15:34] LABS: BASO # 0.1 10^3/uL (0.0-0.2); BASO % 1.4 % (0.0-1.0); EOS # 0.2 10^3/uL (0.0-0.5); EOS % 3.0 % (0.0-3.0); LYMPH # 1.6 10^3/uL (1.5-5.0); LYMPH % 32.7 % (24.0-44.0); MONO # 0.5 10^3/uL (0.0-0.8); MONO % 10.4 % (2.0-8.0); NEUTROPHILS # 2.6 10^3/uL (1.5-8.5); NEUTROPHILS % 52.3 % (36.0-66.0); PLATELET COUNT, AUTOMATED 175 10^3/uL (150-450)
[2025-04-09 15:36] LABS: ALT/SGPT 23.0 U/L (7.0-40); AST/SGOT 24.0 U/L (<34); CALCIUM LEVEL 9.4 MG/DL (8.3-10.6); CARBON DIOXIDE LEVEL 32.0 MMOL/L (20-31); CHLORIDE LEVEL 103.0 MMOL/L (98-107); CHOLESTEROL LEVEL 229.0 MG/DL (<200); CHOLESTEROL RISK RATIO 2.77 (<5); CREATININE FOR GFR 0.88 MG/DL (0.55-1.30); GLOMERULAR FILTRATION RATE 70.7 (>39); IRON (FE) 107.0 UG/DL (50-170); LDL CHOLESTEROL 126.2 MG/DL (<100); NON-HDL-C 146.6 MG/DL; POTASSIUM SERUM 4.7 MMOL/L (3.5-5.1); SODIUM LEVEL 144.0 MMOL/L (136-145); TRIGLYCERIDES LEVEL 102.0 MG/DL (<150)
[2025-04-09 16:14] LABS: ESTIMATED AVERAGE GLUCOSE 108.0 MG/DL (60-110)
== END ==
LOC: M PLALAB 12:39
PROVIDERS: ATTEND Physician Assistant Medical
DX: I10 Essential (primary) hypertension (principal); R73.01 Impaired fasting glucose; D50.9 Iron deficiency anemia, unspecified; Z13.220 Encounter for screening for lipoid disorders